=== PATIENT | female | born 1945 | race Caucasian/White ===

== ENCOUNTER → 2020-01-30 07:47 | Outpatient (CLI) | payer OTHER, SELFPAY ==
[2020-01-30 08:47] LABS: Add Manual Diff / Slide Review NO; Basophils Absolute Auto 100 /uL (0-100); Eosinophils Absolute Auto 300 /uL (0-450); Eosinophils Percent Auto 5.6 % (2-4); Hematocrit 38.7 % (36-46); Lymphocytes Absolute Auto 2000 /uL (1100-4500); Lymphocytes Percent Auto 36.7 % (25-40); Mean Corpuscular HGB Conc 33.7 % (30-36); Mean Corpuscular Hemoglobin 31.3 PG (26-34); Mean Corpuscular Volume 92.8 fL (80-100); Monocytes Absolute Auto 400 /uL (0-900); Monocytes Percent Auto 6.3 % (3-14); Neutrophils Absolute Auto 2800 /uL (1500-7000); Neutrophils Percent Auto 50.4 % (50-75); Platelet Count 188 X10^3/uL (150-400); Red Blood Cell Count 4.17 X10^6/uL (4.0-5.2); Red Cell Distribution Width 12.6 % (11.6-14.8); White Blood Cell Count 5.6 X10^3/uL (4.5-11.0)
[2020-01-30 09:31] LABS: Alanine Aminotransferase 27 IU/L (<35); Albumin 4.6 g/dL (3.5-5.0); Albumin Globulin Ratio 2.2 (1.0-2.8); Alkaline Phosphatase 62 U/L (38-126); Aspartate Aminotransferase 38 IU/L (14-36); BUN Creatinine Ratio 19.6 (6-22); Bilirubin Total 0.9 mg/dL (0.2-1.3); Blood Urea Nitrogen 10 mg/dL (7-17); Calcium 9.9 mg/dL (8.4-10.2); Carbon Dioxide 29 mmol/L (22-32); Chloride 101 mmol/L (98-107); Cholesterol 136 mg/dL (140-199); Estimated Glomerular Filt Rate > 60.0 mL/min (>60); Globulin 2.1 g/dL (1.7-4.1); Glucose 90 mg/dL (80-110); HDL Cholesterol 80 mg/dL (40-60); HEMOLYSIS < 15 (0-50); LDL Cholesterol Calculated 27 mg/dL (<100); Sodium 137 mmol/L (137-145); Total Protein 6.7 g/dL (6.3-8.2); Triglycerides 145 mg/dL (35-150)
[2020-01-30 11:04] LABS: TSH w/ Reflex to FT4 1.18 uIU/mL (0.47-4.68)
== END ==
PROVIDERS: PCP Registered Nurse Diabetes Educator; Referring Provider Registered Nurse Diabetes Educator; Visit Provider Registered Nurse Diabetes Educator
DX: Z86.73 Personal history of transient ischemic attack (TIA), and cerebral infarction without residual deficits (principal)
CPT/HCPCS: 36415; 80053; 80061; 84443; 85025

== ENCOUNTER 2020-09-28 10:55 | Emergency (ER) | payer OTHER, SELFPAY ==
[2020-09-28] VITALS (10 sets, daily range): BP systolic 133–205; BP diastolic 60–79; PULSE 54–69; RESP 14; TEMP 36.6; O2SAT 94–99; BMI 25.0
--- NOTE | 2020-09-28 11:08 | DI.RAD.S_ITS ---
PROCEDURE: XR WRIST RT MIN 3V INDICATIONS: trauma TECHNIQUE: 3 views of the wrist were acquired. COMPARISON: None. FINDINGS: Bones: There is comminuted fracture of the distal radial metaphysis with intra-articular involvement. There is impaction, volar displacement and angulation. There is a nondisplaced ulnar styloid fracture. There is cortical irregularity in the distal pole of scaphoid. No suspicious bony lesions. Soft tissues: No suspicious soft tissue calcifications. Soft tissue swelling. IMPRESSION: 1. Comminuted intra-articular fracture of the distal radial metaphysis. 2. Nondisplaced ulnar styloid fracture. 3. Cortical irregularity of the distal pole of the scaphoid. Scaphoid view would be helpful for further evaluation. Dictated by: aRdha Pabon M.D. on 09/28/2020 at 11:41 Approved by: Radha Pabon M.D. on 09/28/2020 at 11:52
[2020-09-28] MEDS: OXYCODONE/ACETAMINOPHEN 5/325 TABLET 1 TAB PO (11:16)
--- NOTE | 2020-09-28 11:17 | ED.UPPEXIN ---
HPI - Extremity Injury (Upper) General Chief Complaint: Trauma Stated Complaint: fell on hill injury to right wrist Time Seen by Provider: 09/28/20 10:57 Source: patient Mode of arrival: Ambulatory Limitations: no limitations History of Present Illness HPI narrative: 75-year-old woman with history of stroke 4 years ago currently on apixaban, history of hypertension, hyperlipidemia presents after a mechanical fall in her driveway this morning. She stumbled over a branch landing on her right extended hand. She notes that her head did hit the ground after the fall she does not describe significant pain and has no abrasions or contusions associated with that. She complains of no neck pain elbow shoulder or ribcage pain. She did not injure lower extremities with this mechanical fall. Related Data Home Medications Medication Instructions Recorded Confirmed apixaban 5 mg tablet 5 mg PO BID 01/29/20 01/29/20 carvedilol 3.125 mg tablet 3.125 mg PO BID 01/29/20 01/29/20 famotidine 20 mg tablet 20 mg PO DAILY 01/29/20 01/29/20 hydrochlorothiazide 25 mg tablet 25 mg PO DAILY 01/29/20 01/29/20 losartan 100 mg tablet 100 mg PO DAILY 01/29/20 01/29/20 Previous Rx's Medication Instructions Recorded atorvastatin 40 mg PO HS #30 tab 02/16/17 oxycodone-acetaminophen 1 tab PO Q6H PRN #30 tab 09/28/20 polyethylene glycol 3350 17 g PO DAILY #238 g 09/28/20 Allergies Allergy/AdvReac Type Severity Reaction Status Date / Time No Known Drug Allergies Allergy Verified 09/28/20 11:03 Review of Systems Review of Systems Narrative: Pertinent positive and negative findings as per HPI Remainder of review of systems is otherwise unremarkable for Constitutional: Fevers, chills, weakness ENT: No sore throat, neck pain, ear pain CV: Chest pain, palpitations, Respiratory: Cough, wheeze, dyspnea GI: Nausea, vomiting, diarrhea, : Dysuria, hematuria, Patient History Medical History A-fib History of basal cell carcinoma History of CVA (cerebrovascular accident) Hyperlipidemia Hypertension Social History Smoking Status: Never smoker Smoking Status: Never smoker alcohol intake frequency: 0-2 drinks per day Substance Use Type: does not use Exam Narrative Exam Narrative: General: Healthy appearing, in significant pain due to her right wrist but Able to give a complete and coherent history. Well-nourished well-developed HEENT: Moist mucous membranes, normal sclera with reactive pupils, no abrasions or contusions to the head Neck: No cervical spine tenderness, supple Respiratory: Lungs are clear to auscultation, no wheezing no rales no rhonchi. Full and symmetrical air movement Cardiac: Regular rate and rhythm no murmurs no bruits Abdomen: Soft, nontender, good bowel tones, no flank pain Skin: Warm and dry, no rashes, abrasions or contusions Neurologic: Grossly neurologically intact with no obvious asymmetries or abnormalities Extremities: Right wrist with mild deformity, neurovascularly intact and able to move fingers. No restrictions or pain at the elbow, proximal humerus or shoulder. Psych: Cooperative, appropriate insight and affect Initial Vital Signs Initial Vital Signs: Vital Signs Temperature 97.9 F 09/28/20 11:00 Pulse Rate 60 09/28/20 11:00 Respiratory Rate 14 09/28/20 11:00 Blood Pressure 205/79 H 09/28/20 11:00 Pulse Oximetry 99 09/28/20 11:00 Procedures Orthopedic Fracture Reduction Right wrist: Side: right Fracture Reduction Location: radius Analgesia: Plain View block Technique: direct manipulation and traction/counter-traction Post Reduction X-rays Demonstrate: acceptable reduction Post-reduction neuro exam: intact Post-reduction vascular exam: intact Splint Applied: Yes Patient Tolerated Procedure: Well Orthopedic Splinting/Casting Right wrist: Side: right Upper Extremity Injury Location: wrist Upper Extremity Immobilizer: volar splint Other Orthopedic Equipment: other (Sling) Post splinting neuro exam: intact Post splinting vascular exam: intact Placed by: Provider Course Orders Ordered: ED Orders 09/28/20 11:08 XR wrist RT min 3V Stat 09/28/20 13:12 CT UE RT wo con Stat Discontinued Medications Hydromorphone HCl (Hydromorphone 1 Mg Inj) 2 mg IM NOW ONE Stop: 09/28/20 11:59 Last Admin: 09/28/20 12:04 Dose: 2 mg Documented by: BTONER Hydroxyzine Pamoate (Hydroxyzine Pamoate 25 Mg Capsule) 25 mg PO NOW ONE Stop: 09/28/20 12:25 Last Admin: 09/28/20 13:22 Dose: 25 mg Documented by: ADELFO Oxycodone/Acetaminophen (Oxycodone/Acetaminophen 5/325 Tablet) 1 tab PO NOW ONE Stop: 09/28/20 11:09 Last Admin: 09/28/20 11:16 Dose: 1 tab Documented by: ADELFO Vital Signs Vital signs: Vital Signs - 8 hr 09/28/20 11:00 09/28/20 12:16 09/28/20 12:30 Temperature 97.9 F Pulse Rate 60 69 64 Respiratory Rate 14 Blood Pressure 205/79 H Pulse Oximetry 99 97 99 09/28/20 12:31 09/28/20 13:00 09/28/20 13:01 Temperature Pulse Rate 65 61 58 L Respiratory Rate Blood Pressure 170/71 H 163/70 H Pulse Oximetry 98 96 95 09/28/20 13:25 09/28/20 13:30 09/28/20 14:00 Temperature Pulse Rate 61 61 54 L Respiratory Rate Blood Pressure 169/73 H 159/68 H Pulse Oximetry 97 97 94 09/28/20 14:01 Temperature Pulse Rate 57 L Respiratory Rate Blood Pressure 133/60 Pulse Oximetry 95 MDM - Extremity Injury (Upper) Medical Records Attestation: I reviewed the patient's medical records. Imaging Data X-ray wrist: Radiologist's Impression: FINDINGS: Bones: There is comminuted fracture of the distal radial metaphysis with intra-articular involvement. There is impaction, volar displacement and angulation. There is a nondisplaced ulnar styloid fracture. There is cortical irregularity in the distal pole of scaphoid. No suspicious bony lesions. Soft tissues: No suspicious soft tissue calcifications. Soft tissue swelling. IMPRESSION: 1. Comminuted intra-articular fracture of the distal radial metaphysis. 2. Nondisplaced ulnar styloid fracture. 3. Cortical irregularity of the distal pole of the scaphoid. Scaphoid view would be helpful for further evaluation. Dictated by: Radha Pabon M.D. on 09/28/2020 at 11:41 CT wrist: Radiologist's Impression: FINDINGS: Image quality: Excellent. Bones: There is a comminuted distal radius fracture with several fracture planes and involvement of the articular surface. A coronal oriented fracture plane is present with roughly 5 mm of fragment displacement. There is now mild ulnar positive variance due to impaction of the radiocarpal articulation. Transverse alignment at the distal radioulnar joint is normal. There is a mildly displaced, rotated ulnar styloid fracture. No visible displaced scaphoid fractures. Scapholunate alignment remains normal. Mild degeneration at the triscaphe articulation. Soft tissues: Mild soft tissue edema around the distal radius, ulna, and proximal carpal row. No foreign bodies or visible tendon injury. IMPRESSION: 1. Comminuted distal radius fracture and ulnar styloid fracture. 2. Mild ulnar positive variance due to impaction of the distal radius fracture. 3. No definite scaphoid fracture. Dictated by: Gabbi Bernal M.D. on 09/28/2020 at 12:40 MDM Narrative Medical decision making narrative: 75-year-old woman with mechanical fall landing on her right wrist sustaining a comminuted intra-articular fracture all of the distal radius and ulnar styloid fracture. Care is reviewed with Dr. Barajas who requested CT scan in anticipation of surgical intervention later this week. With a socorro block, enough anesthesia was obtained to gently manipulate the wrist as a volar splint was placed. She was neurovascularly intact afterwards however she is anticoagulated on apixaban and there is a moderate amount of bleeding around the fracture and the blood is seeping into the fingers. CT scan suggests improved reduction of the fracture. Patient is safe for discharge home and will follow-up with Dr. Barajas in clinic on Monday the at 1:50 in the afternoon. Discussed use of Percocet for pain control, sling to help with positioning and importance of keeping follow-up appointment. Discharge Plan Departure Patient Disposition: Home Clinical Impression: Fall Qualifiers: Encounter type: initial encounter Qualified Code(s): W19.XXXA - Unspecified fall, initial encounter Closed fracture distal radius and ulna Qualifiers: Encounter type: initial encounter Laterality: right Qualified Code(s): S52.501A - Unspecified fracture of the lower end of right radius, initial encounter for closed fracture Instructions: DI for Wrist Fracture Activity Restrictions/Additional Instructions: Thank you for coming in today You did really well with having the wrist readjusted in the splint placed. You are going to have more pain and swelling over the next couple of days. Keeping your wrist elevated, using ice and keeping the sling on for comfort will be useful You can use 1-2 Percocet every 4-6 hours to help with pain control. In this 1st 48 hours I would suggest to Percocet at a time as your pain has been so challenging. Percocet has narcotic in it and will make you constipated. Every day that you take a Percocet tablet please also take a dose of MiraLax, a stool softener. I have given you a prescription for both. The Percocet is a written prescription and the MiraLax prescription has been electronically transmitted to [facility] You have an appointment with Dr. Samara Barajas on Saturday 09/30 at 1:50 in the afternoon please bring your ID. This will be to discuss your fracture and surgical revision of a fracture If you have worsening symptoms please feel free to return to the emergency department Prescriptions: New oxycodone-acetaminophen 5-325 mg tablet 1 tab PO Q6H PRN (Reason: pain) Qty: 30 RF: 0 polyethylene glycol 3350 17 gram/dose powder 17 g PO DAILY Qty: 238 RF: 0 No Action atorvastatin 40 MG tablet 40 mg PO HS Qty: 30 RF: 0 hydrochlorothiazide 25 mg tablet 25 mg PO DAILY RF: 0 famotidine [Pepcid] 20 mg tablet 20 mg PO DAILY RF: 0 carvedilol 3.125 mg tablet 3.125 mg PO BID RF: 0 Eliquis 5 mg tablet 5 mg PO BID RF: 0 losartan 100 mg tablet 100 mg PO DAILY RF: 0 Referrals: Rufino Solis ARNP [Primary Care Provider] - Samara Barajas MD [Physician] -
[2020-09-28] MEDS: HYDROMORPHONE 1 MG INJ 2 MG IM (12:04)
--- NOTE | 2020-09-28 13:07 | PC.NURSE ---
pt was given lidocaine in rt wrist area by dr rousseau. [address] rousseau placed splint to rt wrist.
--- NOTE | 2020-09-28 13:12 | DI.CT.S_ITS ---
PROCEDURE: CT UE RT WO CON INDICATIONS: pre op distal radius fracture TECHNIQUE: Noncontrast 1 mm axial sections acquired through the carpal bones, with coronal and sagittal reformats. COMPARISON: [facility], CR, XR WRIST RT MIN 3V, 09/28/2020, 11:14. FINDINGS: Image quality: Excellent. Bones: There is a comminuted distal radius fracture with several fracture planes and involvement of the articular surface. A coronal oriented fracture plane is present with roughly 5 mm of fragment displacement. There is now mild ulnar positive variance due to impaction of the radiocarpal articulation. Transverse alignment at the distal radioulnar joint is normal. There is a mildly displaced, rotated ulnar styloid fracture. No visible displaced scaphoid fractures. Scapholunate alignment remains normal. Mild degeneration at the triscaphe articulation. Soft tissues: Mild soft tissue edema around the distal radius, ulna, and proximal carpal row. No foreign bodies or visible tendon injury. IMPRESSION: 1. Comminuted distal radius fracture and ulnar styloid fracture. 2. Mild ulnar positive variance due to impaction of the distal radius fracture. 3. No definite scaphoid fracture. Dictated by: Gabbi Bernal M.D. on 09/28/2020 at 12:40 Approved by: Gabbi Bernal M.D. on 09/28/2020 at 12:47
[2020-09-28] MEDS: hydrOXYzine pamoate 25 MG CAPSULE PO (13:22)
== END 2020-09-28 14:55 | disposition home or self-care (01) ==
PROVIDERS: Emergency Provider Emergency Medicine; PCP Registered Nurse Diabetes Educator
DX: S52.501A Unspecified fracture of the lower end of right radius, initial encounter for closed fracture (principal); S52.611A Displaced fracture of right ulna styloid process, initial encounter for closed fracture; W01.0XXA Fall on same level from slipping, tripping and stumbling without subsequent striking against object, initial encounter; Z79.01 Long term (current) use of anticoagulants
CPT/HCPCS: 25605; 64999; 73110; 73200; 96372; 99284; 99285; J1170

== ENCOUNTER → 2020-12-08 10:50 | Outpatient (CLI) | payer OTHER, SELFPAY ==
[2020-12-08 12:37] LABS: Add Manual Diff / Slide Review NO; Basophils Absolute Auto 0 /uL (0-100); Basophils Percent Auto 0.7 % (0-2); Eosinophils Absolute Auto 100 /uL (0-450); Eosinophils Percent Auto 1.8 % (2-4); Hematocrit 37.7 % (36-46); Hemoglobin 12.5 g/dL (12.0-16.0); Lymphocytes Absolute Auto 2300 /uL (1100-4500); Lymphocytes Percent Auto 37.3 % (25-40); Mean Corpuscular HGB Conc 33.1 % (30-36); Mean Corpuscular Hemoglobin 31.2 PG (26-34); Mean Corpuscular Volume 94.2 fL (80-100); Monocytes Absolute Auto 500 /uL (0-900); Monocytes Percent Auto 7.8 % (3-14); Neutrophils Absolute Auto 3200 /uL (1500-7000); Neutrophils Percent Auto 52.4 % (50-75); Platelet Count 188 X10^3/uL (150-400); Red Cell Distribution Width 13.6 % (11.6-14.8); White Blood Cell Count 6.1 X10^3/uL (4.5-11.0)
[2020-12-08 13:02] LABS: Alanine Aminotransferase 24 IU/L (<35); Albumin 4.4 g/dL (3.5-5.0); Albumin Globulin Ratio 1.8 (1.0-2.8); Alkaline Phosphatase 85 U/L (38-126); Aspartate Aminotransferase 37 IU/L (14-36); BUN Creatinine Ratio 26.8 (6-22); Bilirubin Total 1.2 mg/dL (0.2-1.3); Blood Urea Nitrogen 11 mg/dL (7-17); Calcium 9.9 mg/dL (8.4-10.2); Carbon Dioxide 27 mmol/L (22-32); Chloride 103 mmol/L (98-107); Cholesterol 132 mg/dL (140-199); Estimated Glomerular Filt Rate > 60.0 mL/min (>60); Globulin 2.5 g/dL (1.7-4.1); Glucose 98 mg/dL (80-110); HDL Cholesterol 77 mg/dL (40-60); HEMOLYSIS < 15 (0-50); LDL Cholesterol Calculated 28 mg/dL (<100); Potassium 3.8 mmol/L (3.4-5.1); Sodium 137 mmol/L (137-145); Total Protein 6.9 g/dL (6.3-8.2); Triglycerides 133 mg/dL (35-150)
[2020-12-08 13:28] LABS: TSH w/ Reflex to FT4 1.31 uIU/mL (0.47-4.68)
== END ==
PROVIDERS: PCP Registered Nurse Diabetes Educator; Referring Provider Registered Nurse Diabetes Educator; Visit Provider Registered Nurse Diabetes Educator
DX: M81.0 Age-related osteoporosis without current pathological fracture (principal); Z78.0 Asymptomatic menopausal state; E78.5 Hyperlipidemia, unspecified; I10 Essential (primary) hypertension; Z82.62 Family history of osteoporosis
CPT/HCPCS: 36415; 77080; 80053; 80061; 84443; 85025

== ENCOUNTER → 2021-12-24 08:08 | Outpatient (CLI) | payer OTHER, SELFPAY ==
[2021-12-24 09:40] LABS: Add Manual Diff / Slide Review NO; Basophils Absolute Auto 0 /uL (0-100); Basophils Percent Auto 0.8 % (0-2); Eosinophils Absolute Auto 300 /uL (0-450); Eosinophils Percent Auto 5.3 % (2-4); Hematocrit 38.4 % (36-46); Hemoglobin 13.1 g/dL (12.0-16.0); Lymphocytes Absolute Auto 2100 /uL (1100-4500); Lymphocytes Percent Auto 37.6 % (25-40); Mean Corpuscular HGB Conc 34.2 % (30-36); Mean Corpuscular Hemoglobin 31.4 PG (26-34); Mean Corpuscular Volume 91.9 fL (80-100); Monocytes Absolute Auto 400 /uL (0-900); Monocytes Percent Auto 6.7 % (3-14); Neutrophils Absolute Auto 2800 /uL (1500-7000); Neutrophils Percent Auto 49.6 % (50-75); Platelet Count 173 X10^3/uL (150-400); Red Blood Cell Count 4.17 X10^6/uL (4.0-5.2); Red Cell Distribution Width 12.5 % (11.6-14.8); White Blood Cell Count 5.6 X10^3/uL (4.5-11.0)
[2021-12-24 09:51] LABS: Alanine Aminotransferase 26 IU/L (<35); Albumin 4.4 g/dL (3.5-5.0); Albumin Globulin Ratio 2.1 (1.0-2.8); Alkaline Phosphatase 67 U/L (38-126); Aspartate Aminotransferase 37 IU/L (14-36); BUN Creatinine Ratio 27.9 (6-22); Bilirubin Total 0.9 mg/dL (0.2-1.3); Blood Urea Nitrogen 12 mg/dL (7-17); Calcium 9.2 mg/dL (8.4-10.2); Carbon Dioxide 27 mmol/L (22-32); Chloride 105 mmol/L (98-107); Cholesterol 132 mg/dL (140-199); Estimated Glomerular Filt Rate > 60 mL/min (>60); Globulin 2.1 g/dL (1.7-4.1); Glucose 95 mg/dL (80-110); HDL Cholesterol 84 mg/dL (40-60); HEMOLYSIS < 15 (0-50); LDL Cholesterol Calculated 37 mg/dL (<100); Potassium 4.1 mmol/L (3.4-5.1); Sodium 141 mmol/L (137-145); Total Protein 6.5 g/dL (6.3-8.2); Triglycerides 56 mg/dL (35-150)
[2021-12-24 10:19] LABS: TSH w/ Reflex to FT4 1.29 uIU/mL (0.47-4.68)
== END ==
PROVIDERS: PCP Registered Nurse Diabetes Educator; Referring Provider Registered Nurse Diabetes Educator; Visit Provider Registered Nurse Diabetes Educator
DX: E78.5 Hyperlipidemia, unspecified (principal); I10 Essential (primary) hypertension; I48.91 Unspecified atrial fibrillation; Z86.73 Personal history of transient ischemic attack (TIA), and cerebral infarction without residual deficits
CPT/HCPCS: 36415; 80053; 80061; 84443; 85025

== ENCOUNTER → 2022-12-29 10:04 | Outpatient (CLI) | payer OTHER, SELFPAY ==
[2022-12-29 12:32] LABS: Estimated Glomerular Filt Rate > 60 mL/min (>60)
== END ==
PROVIDERS: PCP Registered Nurse Diabetes Educator; Referring Provider Internal Medicine Clinical Cardiac Electrophysiology; Visit Provider Internal Medicine Clinical Cardiac Electrophysiology
DX: Z79.01 Long term (current) use of anticoagulants (principal)
CPT/HCPCS: 36415; 82565

== ENCOUNTER → 2023-08-21 09:23 | Outpatient (CLI) | payer OTHER, SELFPAY ==
[2023-08-21 11:06] LABS: Hematocrit 39.4 % (36-46); Hemoglobin 13.5 g/dL (12.0-16.0); Mean Corpuscular HGB Conc 34.4 % (30-36); Mean Corpuscular Hemoglobin 31.2 PG (26-34); Mean Corpuscular Volume 90.8 fL (80-100); Platelet Count 201 X10^3/uL (150-400); Red Blood Cell Count 4.34 X10^6/uL (4.0-5.2); Red Cell Distribution Width 12.5 % (11.6-14.8)
[2023-08-21 11:09] LABS: Alanine Aminotransferase 25 IU/L (<35); Albumin 4.4 g/dL (3.5-5.0); Albumin Globulin Ratio 1.8 (1.0-2.8); Alkaline Phosphatase 92 U/L (38-126); Aspartate Aminotransferase 36 IU/L (14-36); BUN Creatinine Ratio 17.3 (6-22); Bilirubin Total 0.9 mg/dL (0.2-1.3); Blood Urea Nitrogen 9 mg/dL (7-17); Calcium 9.7 mg/dL (8.4-10.2); Carbon Dioxide 26 mmol/L (22-32); Chloride 101 mmol/L (98-107); Cholesterol 112 mg/dL (140-199); Estimated Glomerular Filt Rate > 60 mL/min (>60); Globulin 2.4 g/dL (1.7-4.1); Glucose 101 mg/dL (80-110); HDL Cholesterol 73 mg/dL (40-60); HEMOLYSIS < 15 (0-50); LDL Cholesterol Calculated 22 mg/dL (<100); Potassium 4.1 mmol/L (3.4-5.1); Sodium 138 mmol/L (137-145); Total Protein 6.8 g/dL (6.3-8.2); Triglycerides 87 mg/dL (35-150)
[2023-08-21 11:22] LABS: Free T3, Triiodothyronine Free 3.44 pg/mL (2.77-5.27); Free T4, Direct Thyroxine 1.23 ng/dL (0.78-2.19)
[2023-08-21 11:35] LABS: Thyroid Stimulating Hormone 1.41 uIU/mL (0.47-4.68)
[2023-08-21 11:37] LABS: Creatinine Urine Random 27.6 mg/dL
[2023-08-21 11:45] LABS: Microalbumin Urine Random < 0.6 mg/dL (0-1.6)
[2023-08-21 19:47] LABS: Hep C Virus Ab w/Reflex Quant NEGATIVE s/c (NEGATIVE)
== END ==
PROVIDERS: PCP Nurse Practitioner; Referring Provider Nurse Practitioner; Visit Provider Nurse Practitioner
DX: Z79.899 Other long term (current) drug therapy (principal); M81.0 Age-related osteoporosis without current pathological fracture; I10 Essential (primary) hypertension; E78.5 Hyperlipidemia, unspecified; I48.91 Unspecified atrial fibrillation
CPT/HCPCS: 36415; 80053; 80061; 82043; 82570; 84439; 84443; 84481; 85027; 86803

== ENCOUNTER → 2023-12-26 14:49 | Outpatient (CLI) | payer OTHER, SELFPAY ==
--- NOTE | 2023-12-26 14:50 | DI.RAD.S_ITS ---
PROCEDURE: XR CHEST 2V INDICATIONS: cough x 1 yr TECHNIQUE: 2 views of the chest were acquired. COMPARISON: [facility], , CHEST 1 VIEW, 02/14/2017, 12:41. FINDINGS: Surgical changes and devices: None. Lungs and pleura: Lungs are clear. No pleural effusions or pneumothorax. Mediastinum: Mediastinal contours are normal. Heart size is normal. Bones and chest wall: No suspicious bony abnormalities. Soft tissues appear unremarkable. IMPRESSION: No acute pulmonary process. Dictated by: Fatemeh Wright M.D. on 12/26/2023 at 16:08 Approved by: Fatemeh Wright M.D. on 12/26/2023 at 16:08
== END ==
PROVIDERS: PCP Nurse Practitioner; Referring Provider Family Medicine; Visit Provider Family Medicine
DX: R05.3 Chronic cough (principal)
CPT/HCPCS: 71046

== ENCOUNTER → 2024-01-10 11:42 | Outpatient (CLI) | payer OTHER, SELFPAY | PROVIDERS: PCP Nurse Practitioner; Referring Provider Family Medicine; Visit Provider Family Medicine | DX: R05.3 Chronic cough (principal) | CPT/HCPCS: 94060; 94729 ==

== ENCOUNTER → 2024-08-12 12:36 | Outpatient (CLI) | payer OTHER, SELFPAY ==
[2024-08-12 13:44] LABS: Add Manual Diff / Slide Review NO; Basophils Absolute Auto 100 /uL (0-100); Basophils Percent Auto 0.8 % (0-2); Eosinophils Absolute Auto 100 /uL (0-450); Eosinophils Percent Auto 1.8 % (2-4); Hematocrit 38.5 % (36-46); Hemoglobin 13.2 g/dL (12.0-16.0); Lymphocytes Absolute Auto 2500 /uL (1100-4500); Lymphocytes Percent Auto 34.5 % (25-40); Mean Corpuscular HGB Conc 34.1 % (30-36); Mean Corpuscular Hemoglobin 31.5 PG (26-34); Mean Corpuscular Volume 92.1 fL (80-100); Monocytes Absolute Auto 600 /uL (0-900); Monocytes Percent Auto 7.9 % (3-14); Neutrophils Absolute Auto 4000 /uL (1500-7000); Platelet Count 219 X10^3/uL (150-400); Red Blood Cell Count 4.18 X10^6/uL (4.0-5.2); Red Cell Distribution Width 12.4 % (11.6-14.8); White Blood Cell Count 7.2 X10^3/uL (4.5-11.0)
[2024-08-12 14:00] LABS: Hemoglobin A1C% w Est Avg Glu 5.3 % (4.0-6.0)
[2024-08-12 14:05] LABS: Alanine Aminotransferase 32 IU/L (<35); Albumin 4.6 g/dL (3.5-5.0); Alkaline Phosphatase 54 U/L (38-126); Aspartate Aminotransferase 52 IU/L (14-36); BUN Creatinine Ratio 31.3 (6-22); Bilirubin Total 1.5 mg/dL (0.2-1.3); Blood Urea Nitrogen 15 mg/dL (7-17); Calcium 9.8 mg/dL (8.4-10.2); Carbon Dioxide 22 mmol/L (22-32); Chloride 99 mmol/L (98-107); Cholesterol 125 mg/dL (140-199); Estimated Glomerular Filt Rate > 60 mL/min (>60); Globulin 2.3 g/dL (1.7-4.1); Glucose 103 mg/dL (80-110); HDL Cholesterol 74 mg/dL (40-60); LDL Cholesterol Calculated 35 mg/dL (<100); Potassium 4.4 mmol/L (3.4-5.1); Sodium 133 mmol/L (137-145); Total Protein 6.9 g/dL (6.3-8.2); Triglycerides 78 mg/dL (35-150)
[2024-08-12 14:06] LABS: HEMOLYSIS 114 (0-50)
[2024-08-12 14:34] LABS: Thyroid Stimulating Hormone 1.13 uIU/mL (0.47-4.68)
== END ==
PROVIDERS: PCP Family Medicine; Referring Provider Internal Medicine Cardiovascular Disease; Visit Provider Internal Medicine Cardiovascular Disease
DX: I10 Essential (primary) hypertension (principal); E78.2 Mixed hyperlipidemia; I48.0 Paroxysmal atrial fibrillation
CPT/HCPCS: 36415; 80053; 80061; 83036; 84443; 85025

== ENCOUNTER → 2024-08-20 15:37 | Outpatient (CLI) | payer OTHER, SELFPAY ==
--- NOTE | 2024-08-20 15:38 | EKG_ITS ---
[facility] [address] [place] [address] Test Date: 2024-08-20 Pat Name: Aaliyah Hwang Department: [facility] Room: Gender: Female Ruffler: STACI : 1945 Requested By: Order Number: [id number] Reading MD: Rony Bowers Measurements Intervals [place] Rate: 61 P: 24 KS: 186 QRS: 12 QRSD: 110 T: -48 QT: 424 QTc: 426 Interpretive Statements Normal sinus rhythm Left ventricular hypertrophy with repolarization abnormality ( R in aVL , [place] product ) Cannot rule out Septal infarct , age undetermined Electronically Signed On 08-20-2024 17:34:05 PST by Rony Bowers
== END ==
PROVIDERS: PCP Family Medicine; Referring Provider Family Medicine; Visit Provider Family Medicine
DX: I48.20 Chronic atrial fibrillation, unspecified (principal)
CPT/HCPCS: 93005

== ENCOUNTER → 2025-05-08 11:09 | Outpatient (CLI) | payer OTHER, SELFPAY ==
--- NOTE | 2025-05-08 11:10 | DI.RAD.S_ITS ---
PROCEDURE: XR DEXA AXIAL SKELETON INDICATIONS: osteoporosis COMPARISON: [facility], , XR DEXA AXIAL SKELETON, 12/08/2020, 11:10. FINDINGS: Lumbar Spine: Bone mineral density 0.901 g/cm2, T score -1.3, prior T-score of -1.5. Left Femoral Neck: Bone mineral density 0.522 g/cm2, T score -2.9. Left Hip: Bone mineral density 0.602 g/cm2, T score -2.8, prior T-score of -2.6. Fracture Risk Calculation (when applicable): Not applicable (T score greater or equal to -1.0 to: NORMAL) (T score from -1.1 to -2.4: OSTEOPENIA) (T score less than or equal to -2.5: OSTEOPOROSIS) IMPRESSION: Osteoporosis, comparison cannot be made to the prior exam due to differences in technique, however the prior T-scores are reported. Follow-up guidelines as follows: Osteoporosis: Consider a repeat DEXA and Vertebral Fracture Assessment (VFA) exam in 2 years or sooner if medically necessary, to reassess this patient's status. Osteopenia: Consider a repeat DEXA in 2-3 years to reassess this patient's status, or if there is a new clinical indication. Normal: Consider a repeat DEXA in 5 years or sooner, or if there is a new clinical indication. All treatment decisions require clinical judgment and consideration of individual patient factors, including patient preferences, comorbidities, previous drug use, risk factors not captured in the FRAX model (e.g., frailty, falls, vitamin D deficiency, increased bone turnover, interval significant decline in bone density ) and possible under- or over-estimation of fracture risk by FRAX. In addition, the NOF Guide recommends that FDA-approved medical therapies be considered in postmenopausal women and men age >= 50 years with a: * Hip or vertebral (clinical or morphometric) fracture * T-score of <=-2.5 at the spine or hip * Ten-year fracture probability by FRAX of >= 3% for hip fracture or >=20% for major osteoporotic fracture. Dictated by: Faustino Blanco M.D. on 05/08/2025 at 12:53 Approved by: Faustino Blanco M.D. on 05/08/2025 at 12:55
== END ==
PROVIDERS: PCP Family Medicine; Referring Provider Family Medicine; Visit Provider Family Medicine
DX: M85.89 Other specified disorders of bone density and structure, multiple sites (principal); M81.0 Age-related osteoporosis without current pathological fracture
CPT/HCPCS: 77080

== ENCOUNTER 2025-05-15 09:55 | Day surgery (SDC) | payer OTHER, SELFPAY ==
--- NOTE | 2025-05-15 | PATH_ITS ---
[facility] Accession Number: [id number] No. of containers..01 Tissue . 01 Material submitted: . colon - COLON POLYPS @ 35 CM . 01 Diagnosis: A: COLON AT 35 CM, POLYPECTOMIES: Tubular adenomas. [facility] 05/27/2025 1548 Local . 01 Electronically signed: . Bandar Montelongo MD, Pathologist NPI- [id number] . 01 Gross description: . Received [id number] container, labeled with the patient's name and labeled polyps 35 cm colon. The specimen consists of two fragments of nielsen, soft tissue which range in size from 0.3 x 0.2 x 0.2 cm to 1.0 x 0.5 x 0.4 cm. All fragments are totally submitted in one cassette. ([facility] [place]:[id number]) /V 05/27/2025 1259 Local . 01 Pathologist provided ICD-10: Z12.11 . 01 CPT . 458969 Specimen Comment: A courtesy copy of this report has been sent to [facility] Pathology Performed at: [address] [id number] MD Nigel Vicente MD Phone: [phone]
--- NOTE | 2025-05-15 06:55 | PM.HP.IH.1 ---
History of Present Illness History of Present Illness Date Patient Seen: 05/15/25 Chief complaint: Screening Colonoscopy Narrative: 80yo F presents for screening colonoscopy today. 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 Meds Home Medications and Allergies Home Medications ?Medication ?Instructions ?Recorded ?Confirmed ?Type atorvastatin 40 mg tablet 40 mg PO HS #30 tabs 02/16/17 10/18/24 Rx losartan 100 mg tablet 100 mg PO DAILY 01/29/20 10/18/24 History hydrochlorothiazide 25 mg tablet 25 mg PO QAM #90 tabs 08/14/23 10/18/24 Rx albuterol sulfate 90 mcg/actuation inhalation 10/18/24 10/18/24 History aerosol inhaler aspirin 81 mg tablet,delayed 81 mg PO DAILY 10/18/24 10/18/24 History release (Adult Low Dose Aspirin) budesonide-formoterol HFA 160 2 puff inhalation BID PRN 10/18/24 10/18/24 History mcg-4.5 mcg/actuation aerosol shortness of breath or wheezing inhaler (Breyna) Disabled Parking Permit #1 ea 04/08/25 04/08/25 Rx fluticasone 250 mcg-salmeterol 50 1 ea inhalation BID #60 ea 04/08/25 04/08/25 Rx mcg/dose blistr powdr for inhalation (Wixela Inhub) peg 3350-electrolytes 236 240 ml PO Q10M #4,000 mL 04/10/25 Rx gram-22.74 gram-6.74 gram-5.86 gram solution (Golytely) Allergies Allergy/AdvReac Type Severity Reaction Status Date / Time alendronate AdvReac Intermediate Nausea Uncoded 10/18/24 09:09 Exam Narrative Exam Narrative: Const General: healthy appearing, comfortable and no acute distress Orientation: alert and oriented x3 HENMT Ears: hearing grossly normal bilaterally Eyes Visual Villanueva: normal visual villanueva by confrontation Conjunctivae: conjunctivae normal Sclera: sclerae normal EOM: EOM intact bilaterally Resp Effort & Inspection: normal respiratory effort and able to speak in complete sentences Cardio Rate: regular rate GI Palpation: soft (NT) Extrem General: no pedal edema and no calf tenderness Assessment & Plan Assessment and plan (1) Family history of colon cancer: Status: Acute (2) Encounter for screening colonoscopy: Status: Acute Plan Plan colonoscopy, possible biopsy. The risks, benefits and options regarding the procedure were explained to the patient in detail. Risk discussion included but not limited to: bleeding, perforation, unable to reach cecum, missed lesion. The patient was encouraged to ask questions and they were answered to their satisfaction. The patient understands and is agreeable to proceed. Time-Based Coding :: [TOTAL MINUTES] spent with patient and on the chart (including review of chart, obtaining history, exam, reviewing outside data, placing orders, documenting exam and treatment plan, and counseling patient) on [DATE]. PROFEE Innersole Fitter Document charge(s): Yes Charge Codes Inpatient/observation care including admit and discharge same day: [id number]
[2025-05-15 10:36] VITALS: BP 151/67; PULSE 64; RESP 18; TEMP 36.4; O2SAT 97
[2025-05-15] MEDS: LACTATED RINGERS 1,000 ML 42 ML IV (10:39)
--- NOTE | 2025-05-15 11:13 | PM.OP.COLON ---
Operative Date/Time/Diagnoses Date of procedure: 05/15/25 Time of procedure: 11:53 Pre-op diagnosis: Screening colonoscopy, +FH colon cancer Post-op diagnosis: other (colon polyps) Procedure & Clinicians Study performed: Screening colonoscopy with polypectomy Same procedure(s) as scheduled: Yes Indications: 80yo F, screening colonoscopy Surgeon: Tim Cevallos Anesthesia Type: MAC +/- Procedure Notes SCOAP/Timeout: Performed Procedure in detail: Colonoscopy Patient placed in left lateral recumbent position. Time out was performed. Procedural sedation was administered by anesthesia. Examination began with a thorough inspection of the perianal area. There was no evidence of fissures, fistulae, external hemorrhoids or cutaneous malignancy. The colonoscope was then placed into the rectum and the lumen was insufflated with carbon dioxide. The scope was carefully advanced forward. Ultimately the cecum was intubated and confirmed by identification of the ileocecal valve, the appendiceal orifice and the confluence of the taenia. The scope was then slowly withdrawn examining the colon thoroughly in all directions. In the rectum, retroflexion of the scope was performed for inspection of the distal rectum and anal canal. ?Significant colonoscopy findings: ?1. Quality of the preparation-good, [place] 2-3, improved with irrigation/suction ?2. Two sessile polyps, both 4mm, at 60cm, appearance of sessile serrated, removed with cold snare and retrieved for pathology 3. Extensive diverticulosis throughout sigmoid Scope withdrawal time: 21 Findings: divertiulosis and polyp(s) Specimen(s): other (polyps) Estimated Blood Loss: 5 Complications: none Impression: Colon polyps Post-procedure Recommendations: Colonoscopy in 5 years Plan for aftercare: PACU then home Follow up: as needed Disposition: PACU
[2025-05-15 11:50] VITALS: BP 122/59; PULSE 62; RESP 11; TEMP 36.4
[2025-05-15 11:55] VITALS: BP 112/55; PULSE 55; RESP 12; O2SAT 96
[2025-05-15 12:00] VITALS: PULSE 60; RESP 26; O2SAT 97
[2025-05-15 12:12] VITALS: BP 120/59; PULSE 63; RESP 16; O2SAT 96
== END 2025-05-15 12:25 | disposition home or self-care (01) ==
PROVIDERS: PCP Family Medicine; Referring Provider Family Medicine; Visit Provider Surgery
PROC: 0DJD8ZZ Inspection of Lower Intestinal Tract, Via Natural or Artificial Opening Endoscopic (ICD-10-PCS; CPT 45378; principal; 2025-05-15 11:00)
DX: Z12.11 Encounter for screening for malignant neoplasm of colon (principal); Z80.0 Family history of malignant neoplasm of digestive organs; K57.30 Diverticulosis of large intestine without perforation or abscess without bleeding; I10 Essential (primary) hypertension; E78.5 Hyperlipidemia, unspecified; I48.0 Paroxysmal atrial fibrillation; Z86.73 Personal history of transient ischemic attack (TIA), and cerebral infarction without residual deficits; Z79.01 Long term (current) use of anticoagulants; Z79.82 Long term (current) use of aspirin; Z85.828 Personal history of other malignant neoplasm of skin; D12.6 Benign neoplasm of colon, unspecified
CPT/HCPCS: 45385; J2704; J7120

== ENCOUNTER 2025-06-04 11:49 | Emergency (ER) | payer OTHER, SELFPAY ==
[2025-06-04] VITALS (9 sets, daily range): BP systolic 97–143; BP diastolic 58–65; PULSE 49–74; RESP 17–26; TEMP 36.6; O2SAT 94–99; BMI 200.5
--- NOTE | 2025-06-04 12:12 | DI.RAD.S_ITS ---
PROCEDURE: XR HIP W PEL IF DONE RT 2V INDICATIONS: fall TECHNIQUE: AP pelvis with lateral view(s) of the right hip(s). COMPARISON: [facility], CT, CT ABDOMEN PELVIS W CON, 06/04/2025, 13:09. FINDINGS: Bones: No fractures or dislocations. Pelvic ring appears intact. No suspicious bony lesions. Soft tissues: The visualized bowel gas pattern is normal. No suspicious soft tissue calcifications. IMPRESSION: No visualized acute fracture or dislocation. However, if clinical concern and/or pain persist, short interval imaging followup in 7-10 days is recommended, as occult injury cannot be definitively excluded. Dictated by: Fatemeh Wright M.D. on 06/04/2025 at 13:31 Approved by: Fatemeh Wright M.D. on 06/04/2025 at 13:32
--- NOTE | 2025-06-04 12:14 | DI.CT.S_ITS ---
PROCEDURE: CT ABDOMEN PELVIS W CON INDICATIONS: R hip pain x 1 week; constipation and abd pain x 1 week TECHNIQUE: After the administration of intravenous contrast, axial sections acquired from the lung bases to the pubic symphysis. Coronal and sagittal reformats were performed. For radiation dose reduction, the following was used: automated exposure control, adjustment of mA and/or kV according to patient size. COMPARISON: None. FINDINGS: Image quality: Diagnostic. Lower Chest: No significant findings. ABDOMEN: Liver: No solid mass. Gallbladder: Minimal dependent calcifications without wall thickening. Biliary ducts: No biliary dilation. Pancreas: No ductal dilation. Spleen: Size is within normal limits. Adrenal Glands: No adrenal nodules. Kidneys and Ureters: Multiple low-attenuation foci are present within the renal pelvis appearing most suggestive of parapelvic cysts. No gross obstruction. Stomach and Bowel: Normal colonic caliber, without significant wall thickening. Prominent colonic stool particularly within the rectal vault. Scattered diverticula. Peritoneum: No abnormal intraperitoneal fluid. No free air. Ventral Wall: No significant ventral hernia. Abdominal Nodes: No retroperitoneal or mesenteric adenopathy by size criteria. Vessels: Aorta and inferior vena cava are normal in size. PELVIS: Pelvic Organs: Unremarkable. Bladder: No bladder wall thickening, accounting for underdistention. Pelvic Nodes: No enlarged lymph nodes. Miscellaneous: No inguinal hernias are seen. Bones: No aggressive osseous abnormality. IMPRESSION: Diverticulosis. Prominent colonic stool without obstruction. Cholelithiasis without cholecystitis. Dictated by: Fatemeh Wright M.D. on 06/04/2025 at 13:56 Approved by: Fatemeh Wright M.D. on 06/04/2025 at 13:58
--- NOTE | 2025-06-04 12:18 | ED.LOWEXIN ---
HPI - Extremity Injury (Lower) <Jessica Paniagua PA-C - Last Filed: 06/04/25 19:38> General Chief Complaint: Extremity Injury, Lower Stated Complaint: fall T-7, hip pain Time Seen by Provider: 06/04/25 12:00 Source: patient Mode of arrival: Wheelchair History of Present Illness HPI Narrative: Ms. Hwang is a pleasant 80 year old female with a past medical history of CVA, Afib off anticoagulation x 6 months, HTN, HLD who presents to the emergency department with her cousin for right hip pain since a fall x 1 week and abdominal pain, constipation, and nausea. Patient reports that she had a colonoscopy about a month ago and has not felt well since then, reports that she only had 3 benign polyps removed. States that she got a new bed frame a week ago and while walking next to it tripped causing her to fall and hit her right hip. She did not hit her head or sustain any other injuries. She has been walking since then using a cane. However since the fall for about the last week she has been having constipation, she does deal with chronic constipation but reports that she has been having abdominal cramping pain for the last week. She has been feeling nauseous but no vomiting. She has been having decreased urination as well. She denies chest pain shortness of breath, fevers, chills or flu-like symptoms. She had a syncopal episode in the triage room after having her blood drawn. Related Data Home Medications ?Medication ?Instructions ?Recorded ?Confirmed losartan 100 mg tablet 100 mg PO DAILY 01/29/20 05/15/25 albuterol sulfate 90 mcg/actuation inhalation 10/18/24 10/18/24 aerosol inhaler aspirin 81 mg tablet,delayed 81 mg PO DAILY 10/18/24 05/15/25 release (Adult Low Dose Aspirin) budesonide-formoterol HFA 160 2 puff inhalation BID PRN 10/18/24 10/18/24 mcg-4.5 mcg/actuation aerosol shortness of breath or wheezing inhaler (Breyna) carvedilol 3.125 mg tablet 3.125 mg PO BID 05/15/25 05/15/25 Previous Rx's ?Medication ?Instructions ?Recorded atorvastatin 40 mg tablet 40 mg PO HS #30 tabs 02/16/17 hydrochlorothiazide 25 mg tablet 25 mg PO QAM #90 tabs 08/14/23 Disabled Parking Permit #1 ea 04/08/25 fluticasone 250 mcg-salmeterol 50 1 ea inhalation BID #60 ea 04/08/25 mcg/dose blistr powdr for inhalation (Wixela Inhub) peg 3350-electrolytes 236 240 ml PO Q10M #4,000 mL 04/10/25 gram-22.74 gram-6.74 gram-5.86 gram solution (Golytely) cefdinir 300 mg capsule 300 mg PO BID 7 days #14 caps 06/04/25 lidocaine 5 % topical patch 1 patch topical DAILY #30 ea 06/04/25 (Lidoderm) polyethylene glycol 3350 17 17 g PO DAILY 30 days #119 grams 06/04/25 gram/dose oral powder (Miralax) Allergies Allergy/AdvReac Type Severity Reaction Status Date / Time alendronate AdvReac Intermediate Nausea Uncoded 06/04/25 12:06 Review of Systems <Jessica Paniagua PA-C - Last Filed: 06/04/25 19:38> Review of Systems ROS Unobtainable: All systems reviewed & are unremarkable except as noted in HPI and below Patient History <Jessica Paniagua PA-C - Last Filed: 06/04/25 19:38> Medical History Chronic anticoagulation Osteoporosis Hyperlipidemia Hypertension History of basal cell carcinoma A-fib History of CVA (cerebrovascular accident) Social History marital status: unmarried,living together details: 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 Smoking Status: Never smoker alcohol intake: never Smoking Status: Never smoker alcohol intake frequency: 0-2 drinks per day Exam <Jessica Paniagua PA-C - Last Filed: 06/04/25 19:38> Narrative Exam Narrative: GENERAL: 80 year old patient appears stated age. Well-developed patient, in no acute distress. HEAD: Atraumatic. Normocephalic. EYES: PERRL. Extraocular motions intact. No scleral icterus. No injection or drainage. NECK: Trachea midline. Cervical ROM intact. No midline spinal tenderness. CARDIOVASCULAR: Regular rate and rhythm. RESPIRATORY: ?Nonlabored respirations. ?Speaking in clear, full sentences. ?Clear to auscultation. Breath sounds equal bilaterally. No wheezes, rales, or rhonchi. ? GASTROINTESTINAL: Abdomen soft, nondistended. Bowel sounds present. Patient does have somewhat diffuse tenderness, no rebound or guarding. Rectal exam reveals slightly inflamed external, nonbleeding hemorrhoids. There is firm palpable rectal stool present. Light brown stool, no gross blood. EXTREMITIES: TTP R anterior lateral hip region overlying proximal femur, no deformities. No TTP BL knees, ankles. BACK: No midline spinal tenderness, No bruising. NEURO: AOx3. ?Clear speech. ?SITLT BL LE. SKIN: Faint ecchymosis overlying lateral right proximal femur. Initial Vital Signs Initial Vital Signs: Vital Signs Pulse Rate 49 L 06/04/25 12:00 Respiratory Rate 26 H 06/04/25 12:00 Blood Pressure 136/63 06/04/25 12:00 Pulse Oximetry 99 06/04/25 12:00 Oxygen Delivery Method Room Air 06/04/25 12:00 <Susan Denton MD - Last Filed: 06/04/25 19:54> Initial Vital Signs Initial Vital Signs: Vital Signs Pulse Rate 49 L 06/04/25 12:00 Respiratory Rate 26 H 06/04/25 12:00 Blood Pressure 136/63 06/04/25 12:00 Pulse Oximetry 99 06/04/25 12:00 Oxygen Delivery Method Room Air 06/04/25 12:00 Course <Jessica Paniagua PA-C - Last Filed: 06/04/25 19:38> Orders Ordered: ED Orders 06/04/25 12:12 XR hip w pel RT 2V Stat 06/04/25 12:14 CT abdomen pelvis w con Stat 06/04/25 12:23 Complete Blood Count AUTO DIFF Stat Comprehensive Metabolic Panel Stat Lipase Stat Magnesium Stat NT-proBNP (BNP-Adult 18+) Stat Troponin I Stat 06/04/25 12:25 XR chest 1V Stat EKG-12 Lead Stat 06/04/25 13:47 Troponin I Stat 06/04/25 14:24 Urinalysis and Microscopic Stat Urine Culture Stat 06/04/25 17:26 US abdomen limited Stat Discontinued Medications Acetaminophen (Acetaminophen 325 Mg Tablet) 975 mg PO NOW ONE Stop: 06/04/25 19:32 Last Admin: 06/04/25 19:40 Dose: 975 mg Documented By: PRANEETH Sodium Chloride (Normal Saline 0.9%) 1,000 mls @ 1,000 mls/hr IV BOLUS ONE Stop: 06/04/25 13:13 Last Infusion: 06/04/25 14:51 Dose: Infused Documented By: Admin: 06/04/25 13:23 Dose: 1,000 mls/hr Documented By: ZIYAD Ceftriaxone Sodium 1,000 mg/ (Sodium Chloride) 100 mls @ 200 mls/hr IV NOW ONE Stop: 06/04/25 17:27 Last Infusion: 06/04/25 19:15 Dose: Infused Documented By: Admin: 06/04/25 18:51 Dose: 200 mls/hr Documented By: RB Sodium Chloride (Normal Saline 0.9%) 1,000 mls @ 1,000 mls/hr IV BOLUS ONE Stop: 06/04/25 18:29 Last Infusion: 06/04/25 19:15 Dose: Infused Documented By: Admin: 06/04/25 18:50 Dose: 1,000 mls/hr Documented By: RB Lidocaine (Lidocaine 5% Patch) 1 each TOP NOW ONE Stop: 06/04/25 19:32 Last Admin: 06/04/25 19:39 Dose: 1 each Documented By: PRANEETH Magnesium Citrate (Magnesium Citrate 300 Ml Solution) 150 ml PO NOW ONE Stop: 06/04/25 17:48 Last Admin: 06/04/25 18:49 Dose: 150 ml Documented By: RB Ondansetron HCl (Ondansetron 4 Mg/2 Ml Inj) 4 mg IV NOW ONE Stop: 06/04/25 12:15 Last Admin: 06/04/25 13:23 Dose: 4 mg Documented By: ZIYAD Vital Signs Vital signs: Vital Signs - 8 hr 06/04/25 12:00 06/04/25 12:06 06/04/25 12:30 Temperature 98 F Pulse Rate 49 L 74 50 L Respiratory Rate 26 H 17 18 Blood Pressure 136/63 140/60 130/58 L Pulse Oximetry 99 96 99 Oxygen Delivery Method Room Air Room Air Room Air 06/04/25 15:00 06/04/25 15:30 06/04/25 16:30 Temperature Pulse Rate 64 66 61 Respiratory Rate 20 21 Blood Pressure 143/64 H 97/62 100/61 Pulse Oximetry 95 94 Oxygen Delivery Method Room Air Room Air 06/04/25 17:30 06/04/25 18:30 06/04/25 19:00 Temperature Pulse Rate 69 72 Respiratory Rate 19 22 24 Blood Pressure 102/58 L 98/59 L 109/65 Pulse Oximetry 96 94 Oxygen Delivery Method Room Air Room Air <Susan Denton MD - Last Filed: 06/04/25 19:54> Orders Ordered: ED Orders 06/04/25 12:12 XR hip w pel RT 2V Stat 06/04/25 12:14 CT abdomen pelvis w con Stat 06/04/25 12:23 Complete Blood Count AUTO DIFF Stat Comprehensive Metabolic Panel Stat Lipase Stat Magnesium Stat NT-proBNP (BNP-Adult 18+) Stat Troponin I Stat 06/04/25 12:25 XR chest 1V Stat EKG-12 Lead Stat 06/04/25 13:47 Troponin I Stat 06/04/25 14:24 Urinalysis and Microscopic Stat Urine Culture Stat 06/04/25 17:26 US abdomen limited Stat Discontinued Medications Acetaminophen (Acetaminophen 325 Mg Tablet) 975 mg PO NOW ONE Stop: 06/04/25 19:32 Last Admin: 06/04/25 19:40 Dose: 975 mg Documented By: PRANEETH Sodium Chloride (Normal Saline 0.9%) 1,000 mls @ 1,000 mls/hr IV BOLUS ONE Stop: 06/04/25 13:13 Last Infusion: 06/04/25 14:51 Dose: Infused Documented By: Admin: 06/04/25 13:23 Dose: 1,000 mls/hr Documented By: ZIYAD Ceftriaxone Sodium 1,000 mg/ (Sodium Chloride) 100 mls @ 200 mls/hr IV NOW ONE Stop: 06/04/25 17:27 Last Infusion: 06/04/25 19:15 Dose: Infused Documented By: Admin: 06/04/25 18:51 Dose: 200 mls/hr Documented By: RB Sodium Chloride (Normal Saline 0.9%) 1,000 mls @ 1,000 mls/hr IV BOLUS ONE Stop: 06/04/25 18:29 Last Infusion: 06/04/25 19:15 Dose: Infused Documented By: Admin: 06/04/25 18:50 Dose: 1,000 mls/hr Documented By: RB Lidocaine (Lidocaine 5% Patch) 1 each TOP NOW ONE Stop: 06/04/25 19:32 Last Admin: 06/04/25 19:39 Dose: 1 each Documented By: PRANEETH Magnesium Citrate (Magnesium Citrate 300 Ml Solution) 150 ml PO NOW ONE Stop: 06/04/25 17:48 Last Admin: 06/04/25 18:49 Dose: 150 ml Documented By: RB Ondansetron HCl (Ondansetron 4 Mg/2 Ml Inj) 4 mg IV NOW ONE Stop: 06/04/25 12:15 Last Admin: 06/04/25 13:23 Dose: 4 mg Documented By: CTS Vital Signs Vital signs: Vital Signs - 8 hr 06/04/25 12:00 06/04/25 12:06 06/04/25 12:30 Temperature 98 F Pulse Rate 49 L 74 50 L Respiratory Rate 26 H 17 18 Blood Pressure 136/63 140/60 130/58 L Pulse Oximetry 99 96 99 Oxygen Delivery Method Room Air Room Air Room Air 06/04/25 15:00 06/04/25 15:30 06/04/25 16:30 Temperature Pulse Rate 64 66 61 Respiratory Rate 20 21 Blood Pressure 143/64 H 97/62 100/61 Pulse Oximetry 95 94 Oxygen Delivery Method Room Air Room Air 06/04/25 17:30 06/04/25 18:30 06/04/25 19:00 Temperature Pulse Rate 69 72 Respiratory Rate 19 22 24 Blood Pressure 102/58 L 98/59 L 109/65 Pulse Oximetry 96 94 Oxygen Delivery Method Room Air Room Air MDM - Extremity Injury (Lower) <Jessica Paniagua PA-C - Last Filed: 06/04/25 19:38> Medical Records Attestation: I reviewed the patient's medical records. Lab Data 06/04/25 12:23 06/04/25 12:23 Labs: Lab Results 06/04/25 06/04/25 06/04/25 Range/Units 12:23 13:47 14:24 WBC 13.9 H (4.5-11.0) X10^3/uL RBC 4.29 (4.0-5.2) X10^6/uL Hgb 13.4 (12.0-16.0) g/dL Hct 39.3 (36-46) % MCV 91.6 (80-100) fL MCH 31.2 (26-34) PG MCHC 34.0 (30-36) % RDW 12.3 (11.6-14.8) % Plt Count 263 (150-400) X10^3/uL Neut % (Auto) 85.5 H (50-75) % Lymph % (Auto) 6.5 L (25-40) % [place] % (Auto) 7.3 (3-14) % Eos % (Auto) 0.3 L (2-4) % Baso % (Auto) 0.4 (0-2) % Neut # (Auto) 65549 H (7698-0664) /uL Lymph # (Auto) 900 L (9024-4735) /uL [place] # (Auto) 1000 H (0-900) /uL Eos # (Auto) 0 (0-450) /uL Baso # (Auto) 100 (0-100) /uL Sodium 134 L (137-145) mmol/L Potassium 3.7 (3.4-5.1) mmol/L Chloride 100 (98-107) mmol/L Carbon Dioxide 24 (22-32) mmol/L BUN 21 H (7-17) mg/dL Creatinine 0.56 (0.52-1.04) mg/dL Estimated GFR > 60 (>60) mL/min BUN/Creatinine Ratio 37.5 H (6-22) Glucose 124 H (70-99) mg/dL Calcium 9.7 (8.4-10.2) mg/dL Magnesium 1.7 (1.6-2.3) mg/dL Total Bilirubin 0.9 (0.2-1.3) mg/dL AST 110 H (14-36) IU/L ALT 64 H (<35) IU/L Alkaline Phosphatase 184 H (38-126) U/L Troponin I < 0.012 < 0.012 (0.01-0.034) ng/mL NT-Pro-B Natriuret Pep 171 (<450) pg/mL Total Protein 7.0 (6.3-8.2) g/dL Albumin 4.5 (3.5-5.0) g/dL Globulin 2.5 (1.7-4.1) g/dL Albumin/Globulin Ratio 1.8 (1.0-2.8) Lipase 84 (23-300) U/L Urine Color Yellow Urine Appearance Clear Urine pH 7.5 (4.5-8.0) Ur Specific [place] 1.010 (1.000-1.035) Urine Protein 2+ H (Negative) Urine Glucose (UA) Negative (Negative) g/dL Urine Ketones 1+ H (NEGATIVE) Urine Occult Blood Trace-intact (Negative) Urine Nitrate Negative (Negative) Urine Bilirubin Negative (NEGATIVE) Urine Urobilinogen 0.2 (0.2) E.U./dL Ur Leukocyte Esterase 2+ H (NEGATIVE) Urine RBC 0-1/hpf (0-5/HPF) Urine WBC 10-30/hpf H (0-5/HPF) Ur Squamous Epith Cells 5-10 /hpf H (0-5/HPF) Urine Bacteria Few (2-10) H (None) Ur Culture Indicated? Specimen cultured Vol Urine Centrifuged 3.[address] scan - abdomen/pelvis: Radiologist's Impression: PROCEDURE: CT ABDOMEN PELVIS W CON INDICATIONS: R hip pain x 1 week; constipation and abd pain x 1 week TECHNIQUE: After the administration of intravenous contrast, axial sections acquired from the lung bases to the pubic symphysis. Coronal and sagittal reformats were performed. For radiation dose reduction, the following was used: automated exposure control, adjustment of mA and/or kV according to patient size. COMPARISON: None. FINDINGS: Image quality: Diagnostic. Lower Chest: No significant findings. ABDOMEN: Liver: No solid mass. Gallbladder: Minimal dependent calcifications without wall thickening. Biliary ducts: No biliary dilation. Pancreas: No ductal dilation. Spleen: Size is within normal limits. Adrenal Glands: No adrenal nodules. Kidneys and Ureters: Multiple low-attenuation foci are present within the renal pelvis appearing most suggestive of parapelvic cysts. No gross obstruction. Stomach and Bowel: Normal colonic caliber, without significant wall thickening. Prominent colonic stool particularly within the rectal vault. Scattered diverticula. Peritoneum: No abnormal intraperitoneal fluid. No free air. Ventral Wall: No significant ventral hernia. Abdominal Nodes: No retroperitoneal or mesenteric adenopathy by size criteria. Vessels: Aorta and inferior vena cava are normal in size. PELVIS: Pelvic Organs: Unremarkable. Bladder: No bladder wall thickening, accounting for underdistention. Pelvic Nodes: No enlarged lymph nodes. Miscellaneous: No inguinal hernias are seen. Bones: No aggressive osseous abnormality. IMPRESSION: Diverticulosis. Prominent colonic stool without obstruction. Cholelithiasis without cholecystitis. Dictated by: Fatemeh Wright M.D. on 06/04/2025 at 13:56 Approved by: Fatemeh Wright M.D. on 06/04/2025 at 13:58 RUQ Abd US: Radiologist's Impression: PROCEDURE: CT ABDOMEN PELVIS W CON INDICATIONS: R hip pain x 1 week; constipation and abd pain x 1 week TECHNIQUE: After the administration of intravenous contrast, axial sections acquired from the lung bases to the pubic symphysis. Coronal and sagittal reformats were performed. For radiation dose reduction, the following was used: automated exposure control, adjustment of mA and/or kV according to patient size. COMPARISON: None. FINDINGS: Image quality: Diagnostic. Lower Chest: No significant findings. ABDOMEN: Liver: No solid mass. Gallbladder: Minimal dependent calcifications without wall thickening. Biliary ducts: No biliary dilation. Pancreas: No ductal dilation. Spleen: Size is within normal limits. Adrenal Glands: No adrenal nodules. Kidneys and Ureters: Multiple low-attenuation foci are present within the renal pelvis appearing most suggestive of parapelvic cysts. No gross obstruction. Stomach and Bowel: Normal colonic caliber, without significant wall thickening. Prominent colonic stool particularly within the rectal vault. Scattered diverticula. Peritoneum: No abnormal intraperitoneal fluid. No free air. Ventral Wall: No significant ventral hernia. Abdominal Nodes: No retroperitoneal or mesenteric adenopathy by size criteria. Vessels: Aorta and inferior vena cava are normal in size. PELVIS: Pelvic Organs: Unremarkable. Bladder: No bladder wall thickening, accounting for underdistention. Pelvic Nodes: No enlarged lymph nodes. Miscellaneous: No inguinal hernias are seen. Bones: No aggressive osseous abnormality. IMPRESSION: Diverticulosis. Prominent colonic stool without obstruction. Cholelithiasis without cholecystitis. Dictated by: Fatemeh Wright M.D. on 06/04/2025 at 13:56 Approved by: Fatemeh Wright M.D. on 06/04/2025 at 13:58 Chest XR: Radiologist's Impression: PROCEDURE: XR CHEST 1V INDICATIONS: syncope TECHNIQUE: One view of the chest was acquired. COMPARISON: [facility], CR, XR CHEST 2V, 12/26/2023, 14:54. FINDINGS: Surgical changes and devices: None. Lungs and pleura: Lungs are clear. No pleural effusions or pneumothorax. Mediastinum: Mediastinal contours appear normal. Heart size is enlarged. Bones and chest wall: No suspicious bony lesions. Overlying soft tissues appear unremarkable. IMPRESSION: No acute pulmonary process. Dictated by: Fatemeh Wright M.D. on 06/04/2025 at 13:31 Approved by: Fatemeh Wright M.D. on 06/04/2025 at 13:31 ECG Data Interpretation: EKG reveals normal sinus rhythm with a rate of 69 beats per minute, QTC of 460. MDM Narrative Medical decision making narrative: 80 year old female with a past medical history of CVA, Afib off anticoagulation x 6 months, HTN, HLD who presents to the emergency department with her cousin for right hip pain since a fall x 1 week and abdominal pain, constipation, and nausea. Differential diagnosis includes but is not limited to right hip fracture, contusion, constipation, urinary retention, colitis, UTI, cholecystitis, pancreatitis, appendicitis, etc. On initial exam the patient is in no acute distress but she is uncomfortable appearing, nauseous with dry heaving. She had a witnessed syncopal episode in the triage room after having her IV placed, her blood pressure was low but she quickly started to feel better after being laid in his stretcher. She has diffuse abdominal tenderness but no rebound or guarding. She has a mild bruise on her right hip/proximal femur region. No tenderness on her upper extremities, spine, bilateral knees or ankles. We will obtain x-ray of the right hip, lab work including CBC, CMP, lipase, magnesium, troponin, EKG, chest x-ray, CT abdomen and pelvis and treat with IV fluids and nausea medication. Labs reveal elevated WBC count 13.9, normal hemoglobin 13.4 hematocrit 39.3. Platelets 263. Elevation of neutrophils 85%. Slightly decreased sodium 134. Normal potassium 3.7. BUN 21 creatinine 0.56 resulting in an elevated BUN creatinine ratio of 37.5. Glucose 124. Elevation of AST 110, ALT 64 and alkaline phosphatase 184. Negative/undetectable troponin x2, negative BNP 171. Normal lipase 84. Urinalysis does reveal signs of infection with WBCs, bacteria. Chest x-ray reveals no acute pulmonary process. CT abdomen and pelvis reveals diverticulosis, prominent colonic stool without obstruction. Cholelithiasis without cholecystitis. Discussed the case and the imaging with the attending Dr. Denton, will proceed with disimpaction attempt. 1448: Called and discussed case with radiologist, Dr. Wright, who reviewed the patient's CT and confirms that there is no abnormality or fracture with the right hip. Rectal disimpaction attempt was overall unsuccessful, there is palpable stool but too far in the vault for me to remove. Fleet enema was performed with minimal relief. We will try oral magnesium citrate. RUQ US was added given patient's CT findings of cholelithiasis and elevated AST, ALT, alkaline phosphatase. Abdominal ultrasound reveals no acute abnormality. 1844: On reexamination of patient she reports that she is overall feeling better but has not yet had a bowel movement. She has received the oral magnesium citrate. Will assess her ambulation as well. 1929: Patient ambulated around the emergency department with steady gait using walker. She does have walker at home. She is overall feeling better and is eager for discharge home. Discussed with the patient that I will prescribe cefdinir for UTI, daily MiraLax for constipation, Lidoderm for hip pain in addition [id number] ibuprofen and acetaminophen. Discussed with the patient that if she were to develop any new or worsening symptoms, fevers or other concerns she would need to return to the emergency department immediately. Patient verbalized understanding of all information is agreeable with the plan. She is ambulatory and stable for discharge home at this time, antibiotics sent to pharmacy of choice. <Susan Denton MD - Last Filed: 06/04/25 19:54> Lab Data Labs: Lab Results 06/04/25 06/04/25 06/04/25 Range/Units 12:23 13:47 14:24 WBC 13.9 H (4.5-11.0) X10^3/uL RBC 4.29 (4.0-5.2) X10^6/uL Hgb 13.4 (12.0-16.0) g/dL Hct 39.3 (36-46) % MCV 91.6 (80-100) fL MCH 31.2 (26-34) PG MCHC 34.0 (30-36) % RDW 12.3 (11.6-14.8) % Plt Count 263 (150-400) X10^3/uL Neut % (Auto) 85.5 H (50-75) % Lymph % (Auto) 6.5 L (25-40) % [place] % (Auto) 7.3 (3-14) % Eos % (Auto) 0.3 L (2-4) % Baso % (Auto) 0.4 (0-2) % Neut # (Auto) 59424 H (6617-4338) /uL Lymph # (Auto) 900 L (2950-2921) /uL [place] # (Auto) 1000 H (0-900) /uL Eos # (Auto) 0 (0-450) /uL Baso # (Auto) 100 (0-100) /uL Sodium 134 L (137-145) mmol/L Potassium 3.7 (3.4-5.1) mmol/L Chloride 100 (98-107) mmol/L Carbon Dioxide 24 (22-32) mmol/L BUN 21 H (7-17) mg/dL Creatinine 0.56 (0.52-1.04) mg/dL Estimated GFR > 60 (>60) mL/min BUN/Creatinine Ratio 37.5 H (6-22) Glucose 124 H (70-99) mg/dL Calcium 9.7 (8.4-10.2) mg/dL Magnesium 1.7 (1.6-2.3) mg/dL Total Bilirubin 0.9 (0.2-1.3) mg/dL AST 110 H (14-36) IU/L ALT 64 H (<35) IU/L Alkaline Phosphatase 184 H (38-126) U/L Troponin I < 0.012 < 0.012 (0.01-0.034) ng/mL NT-Pro-B Natriuret Pep 171 (<450) pg/mL Total Protein 7.0 (6.3-8.2) g/dL Albumin 4.5 (3.5-5.0) g/dL Globulin 2.5 (1.7-4.1) g/dL Albumin/Globulin Ratio 1.8 (1.0-2.8) Lipase 84 (23-300) U/L Urine Color Yellow Urine Appearance Clear Urine pH 7.5 (4.5-8.0) Ur Specific [place] 1.010 (1.000-1.035) Urine Protein 2+ H (Negative) Urine Glucose (UA) Negative (Negative) g/dL Urine Ketones 1+ H (NEGATIVE) Urine Occult Blood Trace-intact (Negative) Urine Nitrate Negative (Negative) Urine Bilirubin Negative (NEGATIVE) Urine Urobilinogen 0.2 (0.2) E.U./dL Ur Leukocyte Esterase 2+ H (NEGATIVE) Urine RBC 0-1/hpf (0-5/HPF) Urine WBC 10-30/hpf H (0-5/HPF) Ur Squamous Epith Cells 5-10 /hpf H (0-5/HPF) Urine Bacteria Few (2-10) H (None) Ur Culture Indicated? Specimen cultured Vol Urine Centrifuged 3.5 Discharge Plan Departure Patient Disposition: Home Clinical Impression: Acute pain of right hip, Acute UTI Fall Qualifiers: Encounter type: initial encounter Qualified Code(s): W19.XXXA - Unspecified fall, initial encounter Constipation Qualifiers: Constipation type: unspecified constipation type Qualified Code(s): K59.00 - Constipation, unspecified Instructions: DI for Urinary Tract Infection (UTI) Activity Restrictions/Additional Instructions: Dear Jaiden, Thank you for coming to the emergency department. Today you were evaluated for right hip pain after fall and constipation with nausea. Your workup today overall revealed slight elevations in your white blood cell count and your liver enzymes. CT scan of your abdomen and pelvis and ultrasound of your gallbladder revealed constipation. You were treated with an enema in addition to what laxative. You have also received IV antibiotics for a urinary tract infection. I am glad that you are feeling better at this time. It is very important that you continue to hydrate yourself, use daily MiraLax to help with constipation, and use a walker to ambulate while you are having right hip pain. Please use RICE therapy for your pain in addition to ibuprofen/acetaminophen. Rest the painful area. Ice the area of pain/swelling for at least 15 minutes, 4x a day. Compress the area of swelling using a brace, wrap, or splint if applied. Elevate the painful or swollen extremity by supporting it above the level of the heart with pillows when sitting or laying. Please return to the emergency department immediately if you develop worsening pain, vomiting, fevers or any other concerns. Please follow up with your primary care doctor within the next 2-3 days for ER follow-up. (If you do not have a PCP you can call [phone]. ?to schedule an appointment with an [facility] Primary Care Provider) IF YOU DEVELOP ANY NEW OR WORSENING SYMPTOMS, RETURN TO THE ER! Please read the attached instructions, they highlight more specific treatments and interventions for you at home. Thank you for letting me participate in your care, Jessica Paniagua PA-C Prescriptions: New cefdinir 300 mg capsule 300 mg PO BID 7 Days Qty: 14 0RF lidocaine [Lidoderm] 5 % adhesive patch,medicated 1 patch topical DAILY Qty: 30 0RF Rx Instructions: leave on most painful area for up to 12 hrs polyethylene glycol 3350 [Miralax] 17 gram/dose powder 17 g PO DAILY 30 Days Qty: 119 0RF No Action budesonide-formoterol [Breyna] 160-4.5 mcg/actuation HFA aerosol inhaler 2 puff inhalation BID PRN (Reason: shortness of breath or wheezing) aspirin [Adult Low Dose Aspirin] 81 mg tablet,delayed release (DR/EC) 81 mg PO DAILY albuterol sulfate 90 mcg/actuation HFA aerosol inhaler inhalation fluticasone propion-salmeterol [Wixela Inhub] 250-50 mcg/dose blister with device 1 ea inhalation BID Qty: 60 3RF (DME) Disabled Parking Permit See Rx Instructions .ROUTE .MEDSUPPLY Qty: 1 0RF Rx Instructions: I find this patient to be medically disabled and qualified for Disabled Parking as indicated, and signed, on the accompanying Disabled Parking Application for Individuals ; atorvastatin 40 MG tablet 40 mg PO HS Qty: 30 0RF peg 3350-electrolytes [Golytely] 236-22.74-6.74 -5.86 gram recon soln 240 ml PO Q10M Qty: 4000 0RF Rx Instructions: Take as directed by provider. losartan 100 mg tablet 100 mg PO DAILY hydrochlorothiazide 25 mg tablet 25 mg PO QAM Qty: 90 3RF carvedilol 3.125 mg tablet 3.125 mg PO BID Referrals: Day Thayer MD [Primary Care Provider, Family Practice] Stand Alone Forms: Patient Portal/API ED Sign-out <Susan Denton MD - Last Filed: 06/04/25 19:54> Cosign ED Attending Keriature Attestation: I was immediately available in the department for consultation throughout this patient's visit. Patient was seen independently evaluated. Discussed advanced imaging and additional treatment plans in real-time with COLLETTE Paniagua Agree with documentation and discharge plan as described above Susan Denton MD
--- NOTE | 2025-06-04 12:25 | DI.RAD.S_ITS ---
PROCEDURE: XR CHEST 1V INDICATIONS: syncope TECHNIQUE: One view of the chest was acquired. COMPARISON: [facility], CR, XR CHEST 2V, 12/26/2023, 14:54. FINDINGS: Surgical changes and devices: None. Lungs and pleura: Lungs are clear. No pleural effusions or pneumothorax. Mediastinum: Mediastinal contours appear normal. Heart size is enlarged. Bones and chest wall: No suspicious bony lesions. Overlying soft tissues appear unremarkable. IMPRESSION: No acute pulmonary process. Dictated by: Fatemeh Wright M.D. on 06/04/2025 at 13:31 Approved by: Fatemeh Wright M.D. on 06/04/2025 at 13:31
--- NOTE | 2025-06-04 12:25 | EKG_ITS ---
[address] [address] Test Date: 2025-06-04 Pat Name: Aaliyah Hwang Department: Room: Gender: Female Manager [employer] Investigations: DAWIT : 1945 Requested By: Order Number: [id number] Reading MD: Rony Bowers Measurements Intervals Potter Rate: 69 P: 52 OR: 184 QRS: 26 QRSD: 106 T: 54 QT: 430 QTc: 460 Interpretive Statements Normal sinus rhythm Incomplete right bundle branch block Left ventricular hypertrophy with repolarization abnormality ( R in aVL , Seun product ) Cannot rule out Septal infarct , age undetermined Electronically Signed On 06-04-2025 14:14:45 PST by Rony Bowers
--- NOTE | 2025-06-04 12:30 | PC.NURSE ---
Following IV start patient became pale and nauseous and then had a syncopal episode in her Wheelchair.Patient had snoring respirations and was unconscious for about 20 seconds before becoming lucid. She remained pale and diaphroetic for a few mintues but was able to answer questions appropriately. We moved her to a stretcher and got an EKG. Siva MURDOCK present throughout exam. Patient reports continued apin to right hip. No chest pain or shortness of breath.
[2025-06-04 12:39] LABS: Add Manual Diff / Slide Review NO; Hematocrit 39.3 % (36-46); Hemoglobin 13.4 g/dL (12.0-16.0); Lymphocytes Absolute Auto 900 /uL (1100-4500); Mean Corpuscular HGB Conc 34.0 % (30-36); Mean Corpuscular Hemoglobin 31.2 PG (26-34); Mean Corpuscular Volume 91.6 fL (80-100); Platelet Count 263 X10^3/uL (150-400)
[2025-06-04 12:57] LABS: Magnesium 1.7 mg/dL (1.6-2.3)
[2025-06-04 12:58] LABS: Alanine Aminotransferase 64 IU/L (<35); Albumin 4.5 g/dL (3.5-5.0); Albumin Globulin Ratio 1.8 (1.0-2.8); Alkaline Phosphatase 184 U/L (38-126); Blood Urea Nitrogen 21 mg/dL (7-17); Calcium 9.7 mg/dL (8.4-10.2); Carbon Dioxide 24 mmol/L (22-32); Chloride 100 mmol/L (98-107); Estimated Glomerular Filt Rate > 60 mL/min (>60); Globulin 2.5 g/dL (1.7-4.1); Glucose 124 mg/dL (70-99); HEMOLYSIS < 15 (0-50); Lipase 84 U/L (23-300); Potassium 3.7 mmol/L (3.4-5.1); Sodium 134 mmol/L (137-145); Total Protein 7.0 g/dL (6.3-8.2)
[2025-06-04 13:09] LABS: NT-proBNP (BNP-Adult 18+) 171 pg/mL (<450); Troponin I < 0.012 ng/mL (0.01-0.034)
[2025-06-04] MEDS: ONDANSETRON 4 MG/2 ML INJ IV (13:23)
[2025-06-04] MEDS: SODIUM CHLORIDE 0.9% 1,000 ML 1000 ML IV ×2 (13:23→18:50)
[2025-06-04 14:28] LABS: Appearance Urine UA CLEAR; Bilirubin Urine UA NEGATIVE (NEGATIVE); Color Urine UA YELLOW; Glucose Urine UA NEGATIVE (Negative); Ketones Urine UA 1+ (NEGATIVE); Leukocyte Esterase Urine UA 2+ (NEGATIVE); Nitrite Urine UA NEGATIVE (Negative); Occult Blood Urine UA TRACE-INTACT (Negative); Protein Urine UA 2+ (Negative); Specific Gravity Urine UA 1.010 (1.000-1.035); Urobilinogen Urine UA 0.2 E.U./dL (0.2)
[2025-06-04 14:31] LABS: pH Urine UA 7.5 (4.5-8.0)
[2025-06-04 14:35] LABS: Troponin I < 0.012 ng/mL (0.01-0.034)
[2025-06-04 14:38] LABS: Culture Indicated Urine Specimen Cultured
--- NOTE | 2025-06-04 17:26 | DI.US.S_ITS ---
P E ROCEDURE: US ABDOMEN LIMITED INDICATIONS: diffuse abd pain including RUQ; elevated LFTs TECHNIQUE: Real-time scanning was performed of the abdominal and retroperitoneal organs, with image documentation. COMPARISON: [facility], CT, CT ABDOMEN PELVIS W CON, 06/04/2025, 13:09. FINDINGS: Liver: Liver is normal in size and homogeneous in echotexture. Gallbladder: No gallstones. No wall thickening. No pericholecystic edema. Negative sonographic Angulo's sign. Biliary ducts: Intrahepatic bile ducts are non-dilated. Extrahepatic bile duct caliber measures 7 mm. Normal is 6-7 mm or less in diameter, or 10 mm or less post-cholecystectomy. Pancreas: Limited visualization of the pancreas due to bowel gas. Miscellaneous: No free abdominal fluid. Study limited due to bowel gas. IMPRESSION: Study limited by bowel gas. Given the limitations, no acute abnormality detected. Dictated by: Jaci Bowers M.D. on 06/04/2025 at 18:33 Approved by: Jaci Bowers M.D. on 06/04/2025 at 18:36
[2025-06-04] MEDS: MAGNESIUM CITRATE 300 ML SOLUTION 150 ML PO (18:49)
--- NOTE | 2025-06-04 19:29 | PC.NURSE ---
Report received from Naun Nielsen RN
[2025-06-04] MEDS: LIDOCAINE 5% PATCH 1 EACH TOP (19:39)
[2025-06-04] MEDS: ACETAMINOPHEN 325 MG TABLET 975 MG PO (19:40)
== END 2025-06-04 20:28 | disposition home or self-care (01) ==
PROVIDERS: Emergency Provider Physician Assistant; PCP Family Medicine
DX: N39.0 Urinary tract infection, site not specified (principal); M25.551 Pain in right hip; R11.0 Nausea; K59.00 Constipation, unspecified; R55 Syncope and collapse; W01.0XXA Fall on same level from slipping, tripping and stumbling without subsequent striking against object, initial encounter
CPT/HCPCS: 36415; 71045; 73502; 74177; 76705; 80053; 81001; 83690; 83735; 83880; 84484; 85025; 87086; 93005; 96365; 96375; 99284; J0696; J2405; J7030; J7050; Q9967